=== PATIENT | male | born 1950 | race Caucasian/White ===

== ENCOUNTER 2018-10-10 10:01 | Day surgery (SDC) | payer MEDICARE, BC ==
[~2018-10-10 10:01] MED LIST: CHONDR SU A NA/HYALUR INTRAOC KIT (SURGICARE) ONE; EPINEPHRINE INJ/PF 1 MG/1 ML AMPULE ONE; KETOROLAC TROMETHAMINE 0.45% 4 DROP/0.4 ML DROPERETTE OS PRN; LIDOCAINE 1% INJ-PF (10 MG/ML) 30 ML SDV ONE; MIDAZOLAM 2 MG/2 ML INJ ONE; TETRACAINE HCL 0.5% OPH SOLN 0.6 ML DROPERETTE OS PRN
[2018-10-10] MEDS: TROPICAMIDE 1% OPH SOLN 3 ML OS PRN ×3 (10:34→11:02)
[2018-10-10] MEDS: CYCLOPENTOLATE 0.2%/PHENYLEPHRINE 1% OPH SOLN 2 ML OS PRN ×3 (10:34→11:02)
[2018-10-10] MEDS: BESIFLOXACIN HCL 0.6% OPH SUSP 5 ML BOTTLE OS PRN ×4 (10:35→11:28)
[2018-10-10] MEDS: TETRACAINE HCL 0.5% OPH SOLN 4 ML OS PRN ×2 (10:36→11:03)
[2018-10-10] MEDS ORDERED: FENTANYL CITRATE INJ/PF 100 MCG/2 ML AMPUL ONE (10:56)
[2018-10-10] MEDS: DORZOLAMIDE HCL 2%/TIMOLOL MALEAT 0.5% OPH SOLN 10 ML OS PRN ×2 (11:28)
[2018-10-10] MEDS: TOBRAMYCIN SULFATE/DEXAMETH OPH OINTMENT 3.5 GM ONE ×2 (11:28)
== END 2018-10-10 12:20 | disposition home or self-care (01) ==
LOC: SC 10:01
PROVIDERS: ATTEND Ophthalmology
DX: H25.12 Age-related nuclear cataract, left eye (principal); H40.1121 Primary open-angle glaucoma, left eye, mild stage; J44.9 Chronic obstructive pulmonary disease, unspecified; D64.9 Anemia, unspecified; I10 Essential (primary) hypertension; G47.30 Sleep apnea, unspecified; Z88.2 Allergy status to sulfonamides; Z88.0 Allergy status to penicillin; Z85.118 Personal history of other malignant neoplasm of bronchus and lung; Z99.81 Dependence on supplemental oxygen; Z79.51 Long term (current) use of inhaled steroids; Z79.82 Long term (current) use of aspirin; Z79.899 Other long term (current) drug therapy; Z87.891 Personal history of nicotine dependence
CPT/HCPCS: 0191T; 66984; 142; C1783; J0171; J2250; J3010; J3490; V2632

== ENCOUNTER 2018-10-24 06:46 | Day surgery (SDC) | payer MEDICARE, BC ==
[~2018-10-24 06:46] MED LIST changes: -CHONDR SU A NA/HYALUR INTRAOC KIT (SURGICARE) ONE; -EPINEPHRINE INJ/PF 1 MG/1 ML AMPULE ONE; +KETOROLAC TROMETHAMINE 0.45% 4 DROP/0.4 ML DROPERETTE OD PRN; -KETOROLAC TROMETHAMINE 0.45% 4 DROP/0.4 ML DROPERETTE OS PRN; -LIDOCAINE 1% INJ-PF (10 MG/ML) 30 ML SDV ONE; -MIDAZOLAM 2 MG/2 ML INJ ONE; +TETRACAINE HCL 0.5% OPH SOLN 0.6 ML DROPERETTE OD PRN; -TETRACAINE HCL 0.5% OPH SOLN 0.6 ML DROPERETTE OS PRN
[2018-10-24] MEDS ORDERED: MIDAZOLAM 2 MG/2 ML INJ ONE (06:53)
[2018-10-24] MEDS ORDERED: FENTANYL CITRATE INJ/PF 100 MCG/2 ML AMPUL ONE (06:53)
[2018-10-24] MEDS: TETRACAINE HCL 0.5% OPH SOLN 4 ML OD PRN ×3 (07:02→07:46)
[2018-10-24] MEDS: CYCLOPENTOLATE 0.2%/PHENYLEPHRINE 1% OPH SOLN 2 ML OD PRN ×3 (07:03→07:25)
[2018-10-24] MEDS: TROPICAMIDE 1% OPH SOLN 3 ML OD PRN ×3 (07:03→07:25)
[2018-10-24] MEDS: BESIFLOXACIN HCL 0.6% OPH SUSP 5 ML BOTTLE OD PRN ×4 (07:03→08:17)
[2018-10-24] MEDS ORDERED: EPINEPHRINE INJ/PF 1 MG/1 ML AMPULE ONE (07:11)
[2018-10-24] MEDS ORDERED: LIDOCAINE 1% INJ-PF (10 MG/ML) 30 ML SDV ONE (07:11)
[2018-10-24] MEDS ORDERED: CHONDR SU A NA/HYALUR INTRAOC KIT (SURGICARE) ONE (07:11)
[2018-10-24] MEDS: ALBUTEROL SULFATE 0.083% NEB 2.5 MG/3 ML AMPUL NEB ONE ×2 (07:20→07:25)
[2018-10-24] MEDS: TOBRAMYCIN SULFATE/DEXAMETH OPH OINTMENT 3.5 GM ONE ×2 (08:00→08:17)
[2018-10-24] MEDS: DORZOLAMIDE HCL 2%/TIMOLOL MALEAT 0.5% OPH SOLN 10 ML OD PRN ×2 (08:17)
== END 2018-10-24 08:54 | disposition home or self-care (01) ==
LOC: SC 06:46
PROVIDERS: ATTEND Ophthalmology
DX: H25.11 Age-related nuclear cataract, right eye (principal); H40.1111 Primary open-angle glaucoma, right eye, mild stage; Z98.42 Cataract extraction status, left eye; J44.9 Chronic obstructive pulmonary disease, unspecified; I10 Essential (primary) hypertension; Z79.899 Other long term (current) drug therapy; Z79.51 Long term (current) use of inhaled steroids; Z79.82 Long term (current) use of aspirin; Z87.891 Personal history of nicotine dependence; Z88.0 Allergy status to penicillin; Z88.2 Allergy status to sulfonamides; Z85.118 Personal history of other malignant neoplasm of bronchus and lung
CPT/HCPCS: 0191T; 66984; 142; C1783; J0171; J2250; J3010; J3490; V2632